=== PATIENT | female | born 1970 | race Caucasian/White ===

== ENCOUNTER 2019-10-05 17:36 | Emergency (ER) | payer OTHER ==
--- NOTE | 2019-10-05 17:48 | UC ---
FLU HPI - History of Current Complaint Stated Complaint: FLU SYMPTOMS Time Seen by Provider: 10/05/19 17:48 Hx Last Menstrual Period: na - Allergy/Home Medications Allergies/Adverse Reactions: Allergies Allergy/AdvReac Type Severity Reaction Status Date / Time No Known Allergies Allergy Verified 10/07/18 12:16 PMH/Surg Hx/FS Hx/Imm Hx - Surgical History Surgical History: Yes Surgery Procedure, Year, and Place: ENDOSCOPY. APPENDECTOMY. choly. Tonsils - Family History Known Family History: Positive: None - Social History Alcohol Use: Occasionally Substance Use Type: None Smoking Status (MU): Never Smoked Tobacco Discharge ED - Discharge Plan Referrals: Bijan Carlisle MD [Primary Care Provider] -
[2019-10-05 18:18] VITALS: BP 115/76
--- NOTE | 2019-10-05 18:20 | UC ---
FLU HPI - HPI Summary HPI Summary: 49 yo female presents with flu-like symptoms. She tells me that yesterday she developed fatigue, body aches, and nausea. Today her symptoms have continued and she has been vomiting all day - around once an hour. She has tried to drink water, but has not been able to keep it down and vomits soon after. She did not get a flu shot this year. 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 She denies fever, chills, SOB, chest pain , diarrhea, dysuria, abdominal pain. - History of Current Complaint Chief Complaint: UCGI Stated Complaint: FLU SYMPTOMS Time Seen by Provider: 10/05/19 17:48 Hx Obtained From: Patient Hx Last Menstrual Period: na Onset/Duration: Sudden Onset Severity Currently: Moderate Severity Initially: Moderate Pain Intensity: 7 Pain Scale Used: 0-10 Numeric - Allergy/Home Medications Allergies/Adverse Reactions: Allergies Allergy/AdvReac Type Severity Reaction Status Date / Time No Known Allergies Allergy Verified 10/05/19 18:18 PMH/Surg Hx/FS Hx/Imm Hx - Additional Past Medical History Additional PMH: None - Surgical History Surgical History: Yes Surgery Procedure, Year, and Place: ENDOSCOPY. APPENDECTOMY. choly. Tonsils - Family History Known Family History: Positive: None - Social History Lives: With Family Alcohol Use: Occasionally Substance Use Type: None Smoking Status (MU): Never Smoked Tobacco Review of Systems All Other Systems Reviewed And Are Negative: No Constitutional: Positive: Fatigue, Other - Body aches Skin: Positive: Negative Eyes: Positive: Negative ENT: Positive: Negative Respiratory: Positive: Negative Cardiovascular: Positive: Negative Gastrointestinal: Positive: Vomiting, Nausea Genitourinary: Positive: Negative Neurological/Mental Status: Positive: Negative Psychological: Positive: Negative Physical Exam - Summary Physical Exam Summary: GENERAL: NAD. WDWN. SKIN: No rashes, sores, or open wounds. HEENT: Head: AT/NC Eyes: PERRLA. EOM intact. Conjunctiva clear without inflammation or discharge. Ears: Hearing grossly normal. TMs intact, no bulging, erythema, or edema. Nose: Nasal mucosa pink and moist. NTTP maxillary and frontal sinus. Throat: Posterior oropharynx without exudates, erythema, or tonsillar enlargement. Uvula midline. NECK: Supple. Anterior cervical LAD NTTP. CHEST: CTAB. No r/r/w. No accessory muscle use. Breathing comfortably and in no distress. CV: Pulses intact. Brisk cap refill. ABDOMEN: Soft. NTTP. No distention or guarding., No organomegaly. No CVA tenderness. Bowel sounds present NEURO: Alert. PSYCH: Age appropriate behavior. Triage Information Reviewed: Yes Vital Signs: Initial Vital Signs Temp 98.3 F 10/05/19 18:15 Pulse 122 10/05/19 18:15 Resp 14 10/05/19 18:15 BP 115/76 10/05/19 18:15 Pulse Ox 100 10/05/19 18:15 Laboratory Tests 10/05/19 10/05/19 18:29 18:58 POC Urine Color Yellow POC Urine Clarity Clear POC Urine pH 5.5 POC Ur Specif [place] >= 1.030 POC Urine Protein 1+ A POC Ur Glucose (UA) Negative POC Urine Ketones 2+ A POC Urine Blood Trace-intact POC Urine Nitrite Negative POC Urine Bilirubin 1+ A POC Urine Urobilinogen 0.2 POC U Leukocyte Esteras 1+ A Influenza A (Rapid) Negative Influenza B (Rapid) Negative Vital Signs Reviewed: Yes Flu Course/Dx - Course Course Of Treatment: POC flu negative. UA as above -- she is not having any urinary symptoms, therefore will send urine for culture and treat if needed. Discussed with Dr. Gilliam and she agrees with plan. Her exam is unremarkable, abdomen is non-tender, and she is afebrile. I suspect a viral illness at this time. Pt was given IV NS 1L and zofran in the clinic. She had no more episodes of vomiting and felt better overall. Was able to tolerate po fluids. Discussed that if symptoms worsen or vomiting returns - recommend going to the ED for further eval. Pt voiced understanding - Differential Dx/Diagnosis Provider Diagnosis: Nausea and vomiting Discharge ED - Sign-Out/Discharge Documenting (check all that apply): Patient Departure All imaging exams completed and their final reports reviewed: No Studies - Discharge Plan Condition: Stable Disposition: HOME Prescriptions: Ondansetron ODT TAB* [Zofran 4 MG Odt TAB*] 4 mg PO Q8H PRN #12 tab.odt PRN Reason: Nausea Patient Education Materials: Acute Nausea and Vomiting (ED) Referrals: Bijan Carlisle MD [Primary Care Provider] - Additional Instructions: If you develop a fever, shortness of breath, chest pain, new or worsening symptoms - please call your PCP or go to the ED immediately. Advance your diet as tolerated. - Billing Disposition and Condition Condition: STABLE Disposition: Home
[2019-10-05] MEDS ORDERED: Ondansetron INJ* 2 MG/ML VIAL IV ONE ×2 (18:33→19:19)
[2019-10-05] MEDS ORDERED: NS 0.9% 1000 ML** 1,000 ML IV ONE (18:33)
[2019-10-05 18:40] LABS: Influenza A Molecular Negative (Negative); Influenza B Molecular Negative (Negative)
[2019-10-05] MEDS ORDERED: diPHENhydraMINE IV* 50 MG/ML 1 ml VIAL (BENADRYL) IV ONE (18:57)
[2019-10-05] MEDS ORDERED: Metoclopramide IV* 5 MG/ML 2 ML VIAL IV ONE (18:58)
== END 2019-10-05 20:15 | disposition home or self-care (01) ==
LOC: UCEAST 17:36
DX: R11.2 Nausea with vomiting, unspecified (principal); R53.83 Other fatigue; R52 Pain, unspecified
CPT/HCPCS: 81003; 87086; 96360; 96376; J1200; J2405; J2765